=== PATIENT | female | born 1950 | race Caucasian/White ===

== ENCOUNTER → 2022-01-01 | Outpatient (CLI) | payer BC, MEDICARE ==
[~2022-01-01] MED LIST: ALBUTEROL0.09 MG/A1 IH; ALLERGY RELIEF25 M2 PO; AVELOX 400MG T400 MG PO; CALCIUM600 M1 PO; CELEXA40 MG PO; CLARITIN 1010 MG/TAB PO; DEPO-PROVER150 MG/M1 IM; FIBER CHOICE1 CTB PO; FIBERCON625 MG PO; MOTRIN 200200 MG/TAB PO; NEXIUM 20MG CAP20 MG PO; PERCOCET 500 MG1 TAB PO; PREDNISONE20 MG PO; QUESTRAN1 GM PO; ZOCOR 20MG20 MG PO
== END ==
LOC: COL.RAD 10:14
DX: R05.9 Cough, unspecified (principal)